=== PATIENT | male | born 1935 | race Caucasian/White ===

== ENCOUNTER → 2016-05-30 | Outpatient (CLI) | payer MEDICARE, BC ==
[~2016-05-30] MED LIST: ASPI-558 PO; CALC-52; CHOL100055; CIPR-280 PO; METR-116 PO; OMEP20TA2 PO; ONDA4TAB10 PO; ZOLE4VIA
[2016-05-30 10:49] LABS: ANION GAP 14 MEQ/L (5-15); BUN/CREATININE RATIO 16 RATIO (6-26); CALCIUM 9.9 MG/DL (8.4-10.2); CHLORIDE 105 MEQ/L (98-107); CO2 - CARBON DIOXIDE 26 MEQ/L (22-30); CREATININE 1.1 MG/DL (0.8-1.5); GLOMERULAR FILTRATION RATE 64; GLUCOSE 95 MG/DL (75-110); MAGNESIUM 2.2 MG/DL (1.6-2.3); PHOSPHORUS 3.8 MG/DL (2.5-4.5); POTASSIUM 4.4 MEQ/L (3.6-5); SODIUM 145 MEQ/L (134-144)
== END ==
LOC: LAB 10:17
PROVIDERS: ATTEND Internal Medicine Medical Oncology
DX: C61 Malignant neoplasm of prostate (principal); M81.8 Other osteoporosis without current pathological fracture
CPT/HCPCS: 36415; 80048; 83735; 84100; 84153

== ENCOUNTER → 2016-06-14 | Outpatient (CLI) | payer MEDICARE, BC | LOC: WC.BC 13:59 | PROVIDERS: ATTEND Family Medicine | DX: N64.4 Mastodynia (principal); N62 Hypertrophy of breast | CPT/HCPCS: G0204; G0279 ==